=== PATIENT | male | born 1995 | race Caucasian/White ===

== ENCOUNTER 2023-01-26 10:06 | Emergency (ER) | payer SELFPAY ==
[2023-01-26 10:15] VITALS: BP 163/89; PULSE 91; RESP 16; TEMP 36.3; O2SAT 100
--- NOTE | 2023-01-26 11:10 | ED.GENADULT ---
HPI - General Adult General Chief complaint: Recheck/Abnormal Lab/Rx Stated complaint: HTN Time Seen by Provider: 01/26/23 10:51 History of Present Illness HPI narrative: 27-year-old male presents to the emergency room for evaluation of multiple high blood pressure readings. Patient states over the past couple of days he has noticed blood pressure readings over 150/100. Denies headaches, chest pain, vision changes, palpitations frequent urination. States has a strong family history of hypertension. Related Data Allergies Allergy/AdvReac Type Severity Reaction Status Date / Time No Known Allergies Allergy Verified 01/26/23 10:10 Review of Systems Review of Systems: CONSTITUTIONAL: Denies fever, chills, or sweats. EYES: Denies visual changes, redness, or discharge. ENT: Denies rhinorrhea, congestion, sore throat, or otalgia. CARDIOVASCULAR: Denies chest pain, palpitations, or edema. RESPIRATORY: Denies cough or dyspnea. GASTROINTESTINAL: Denies abdominal pain, nausea, vomiting, or diarrhea. GENITOURINARY: Denies dysuria or hematuria. SKIN: Denies rash or itching. MUSCULOSKELETAL: Denies back pain, joint pain, or myalgia. NEUROLOGIC: Denies headache, numbness, dizziness, or weakness. PSYCHIATRIC: Denies anxiety or depression. Exam Narrative: GENERAL: Well-appearing, well-nourished, no physical limitations, and in no acute distress. HEAD: Normocephalic, atraumatic. EYES: Conjunctivae normal, PERRLA and EOMI. NECK: Supple. No carotid bruits or JVD CHEST: Clear to auscultation. No respiratory distress. No wheezes rales or rhonchi. HEART: Regular rate and rhythm. No murmur heard. Normal peripheral pulses. EXTREMITIES: Normal range of motion. No edema. No clubbing or cyanosis SKIN: Warm, dry, no rash. No noted wounds NEURO: No focal deficits. Alert and oriented x3. MAEW. CN's II-XI intact bilaterally, normal gait PSYCH: Cooperative. Normal mood and affect. Course Vital Signs Vital signs: Vital Signs Temperature 36.3 C L 01/26/23 10:15 Pulse Rate 91 01/26/23 10:15 Respiratory Rate 16 01/26/23 10:15 Blood Pressure 163/89 H 01/26/23 10:15 Pulse Oximetry 100 01/26/23 10:15 Temperature 36.3 C L 01/26/23 10:15 Pulse Rate 91 01/26/23 10:15 Respiratory Rate 16 01/26/23 10:15 Blood Pressure 163/89 H 01/26/23 10:15 Pulse Oximetry 100 01/26/23 10:15 Medical Decision Making Vital Signs Vital Signs: Vital Signs Temperature 36.3 C L 01/26/23 10:15 Pulse Rate 91 01/26/23 10:15 Respiratory Rate 16 01/26/23 10:15 Blood Pressure 163/89 H 01/26/23 10:15 Pulse Oximetry 100 01/26/23 10:15 Temperature 36.3 C L 01/26/23 10:15 Pulse Rate 91 01/26/23 10:15 Respiratory Rate 16 01/26/23 10:15 Blood Pressure 163/89 H 01/26/23 10:15 Pulse Oximetry 100 01/26/23 10:15 Lab Data 01/26/23 11:31 Labs: Lab Results 01/26/23 Range/Units 11:31 Sodium 140 (137-145) mmol/L Potassium 3.8 (3.4-5.0) mmol/L Chloride 103 (98-107) mmol/L Carbon Dioxide 31 H (22-30) mmol/L Anion Gap 6 L (8-16) mmol/L BUN 12 (9-20) mg/dL Creatinine 0.70 (0.7-1.3) mg/dL Estim Creat Clear Calc 163 ml/min Estimated GFR > 60 (59 - ) Glucose 106 (65-110) mg/dL Calcium 9.8 (8.4-10.2) mg/dL Total Bilirubin 0.9 (0.2-1.3) mg/dL AST 45 (17-59) U/L ALT 56 H (6-50) U/L Alkaline Phosphatase 76 (38-126) U/L Total Protein 8.0 (6.3-8.2) g/dL Albumin 5.1 (3.5-5.1) g/dL Discharge Plan Discharge Clinical Impression: Hypertension Patient Disposition: Home, Self-Care Condition: Stable Instructions: Antibiotic Form, Hypertension (ED) Prescriptions: New losartan 25 mg tablet 25 mg PO DAILY Qty: 30 0RF Follow-up/Referrals: Sainz,Lawson J., MD [Physician] - PHYSICIAN,[employer] ENGINEER [Primary Care Provider] - Time of Disposition: 11:57
[2023-01-26 11:51] LABS: Alanine Aminotransferase 56 U/L (6-50); Albumin Level 5.1 g/dL (3.5-5.1); Alkaline Phosphatase 76 U/L (38-126); Anion Gap 6 mmol/L (8-16); Aspartate Amino Transferase 45 U/L (17-59); Bilirubin,Total 0.9 mg/dL (0.2-1.3); Blood Urea Nitrogen 12 mg/dL (9-20); Calcium 9.8 mg/dL (8.4-10.2); Carbon Dioxide 31 mmol/L (22-30); Chloride 103 mmol/L (98-107); Estimated CRCL calculation 163 ml/min; Estimated Glomerular Filt Rate > 60; Glucose 106 mg/dL (65-110); Potassium 3.8 mmol/L (3.4-5.0); Sodium 140 mmol/L (137-145)
== END 2023-01-26 12:02 | disposition home or self-care (01) ==
PROVIDERS: Emergency Provider Nurse Practitioner Family
DX: I10 Essential (primary) hypertension (principal)
CPT/HCPCS: 36415; 80053; 99283

== ENCOUNTER 2023-07-19 08:06 | Emergency (ER) | payer SELFPAY ==
--- NOTE | 2023-07-19 08:07 | ED.URI ---
HPI - URI/Sore Throat General Chief Complaint: Upper Respiratory Infection Stated Complaint: Body Aches,Cough Time Seen by Provider: 07/19/23 08:07 Source: patient Mode of arrival: ambulatory Limitations: no limitations History of Present Illness HPI Narrative: Alyson is a 28-year-old male patient presenting to the clinic today with complaints of body aches, sinus congestion, fever, productive cough, and chills. He reports body aches, fever, and chills started last night. Has had a productive cough for approximately 2-3 weeks. Had a sore throat that had improved over the last week. Is bringing up brown/green phlegm. Did not check his temperature last night but felt very hot and his feet were cold. No known exposure to anyone with COVID, flu, or strep. Has been taking OTC cold medicine. MD elicited complaint: fever, cough, nasal congestion, sinus pain and other (Body aches, chills) Related Data Allergies Allergy/AdvReac Type Severity Reaction Status Date / Time No Known Allergies Allergy Verified 01/26/23 10:10 Review of Systems Review of Systems: Pertinent positives per HPI. Patient denies any rash, headache, visual changes, dizziness, shortness of breath, chest pain, palpitations, nausea, vomiting, diarrhea, constipation, abdominal pain, or any urinary issues. PMFSH Comments At the time of my signature, I reviewed and agree with the nursing past medical, surgical, social, and family history. There is no relevant family history pertinent to the patient complaint. Exam Narrative: General: Well-developed, well nourished, in no apparent distress Head: Normocephalic, atraumatic Eyes: Pupils equally round and reactive to light bilaterally, EOM intact, sclera and conjunctive clear, no discharge, lids normal Ears: TMs intact and congested, ear canals clear, no drainage, grossly hearing normal. Nose: Nares patent, clear discharge, moderate inflammation, maxillary sinus tenderness. Mouth: Oral pharynx red with mild tonsillar enlargement without lesions or masses, good dentition, MMM. PND Neck: Supple, trachea midline, no enlargement of anterior or posterior cervical nodes, no thyroid masses or goiter palpable. Cardio: Regular rate and rhythm, s1 and s2 normal, no murmur appreciated. Resp: Clear to auscultation bilaterally, no rhonchi, rales, wheezing or rubs Course Course Emergency Course: Portions of this record may have been created with voice recognition software. Level of Care: Express Care Visit Vital Signs Vital signs: Vital signs reviewed MDM - URI/Sore Throat MDM Narrative Medical decision making narrative: At the time of visit patient is resting comfortably on the exam table. COVID and influenza testing was performed and were negative. I suspect patient has acute bacterial rhinosinusitis. Prescription for Augmentin and prednisone was sent to the pharmacy. Supportive measures were discussed with the patient he voiced understanding discharge instructions agrees to treatment plan. Differential Diagnosis Differential diagnosis: Likely upper respiratory infection, otitis media, sinusitis, viral infection, bronchitis, influenza, pharyngitis and other (COVID, pneumonia) Discharge Plan Discharge Clinical Impression: Acute bacterial rhinosinusitis Patient Disposition: Home, Self-Care Condition: Stable Instructions: Antibiotic Form, Rhinosinusitis (ED) Additional Instructions: Influenza and COVID test were negative in the clinic today. Take prescription medications only as prescribed-Augmentin and prednisone Increase fluids and stay well hydrated Tylenol/motrin for pain/fever Flonase and OTC antihistamines as directed Vicks vapor rub to open sinuses Sinus rinses for congestion Cepacol spray, cough drops, throat lozenges, warm tea with honey/lemon, gargle salt water to soothe throat BRAT diet for diarrhea Clear liquids x 24 hours then advance as tolerated for nausea/vomiting
[2023-07-19 08:21] VITALS: BP 141/88; PULSE 93; RESP 18; TEMP 36.4; O2SAT 100
== END 2023-07-19 08:39 | disposition home or self-care (01) ==
PROVIDERS: Emergency Provider Nurse Practitioner Family
DX: J01.90 Acute sinusitis, unspecified (principal); Z20.822 Contact with and (suspected) exposure to COVID-19; I10 Essential (primary) hypertension
CPT/HCPCS: 87426; 87804; 99213; C9803; G0463

== ENCOUNTER 2024-08-03 09:47 | Emergency (ER) | payer OTHER, SELFPAY ==
--- NOTE | ~2024-08-03 | XR_ITS ---
EXAMINATION: XR hand RT min 3V DATE: 08/03/2024 10:24 INDICATION: Right hand injury with pain at the first metacarpophalangeal joint TECHNIQUE: Posteroanterior, oblique and lateral views of the right hand were obtained. COMPARISON: None. FINDINGS: Alignment is normal. No fracture. Joint spaces are normal. Soft tissues are unremarkable. IMPRESSION: 1. Normal right hand radiographs. Reviewed, dictated and finalized at location B. [facility]
[2024-08-03 10:01] VITALS: BP 138/90; PULSE 65; RESP 16; TEMP 36.4; O2SAT 99
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
== END 2024-08-03 10:33 | disposition home or self-care (01) ==
PROVIDERS: Emergency Provider Nurse Practitioner
DX: S60.221A Contusion of right hand, initial encounter (principal); W22.10XA Striking against or struck by unspecified automobile airbag, initial encounter; I10 Essential (primary) hypertension; K21.9 Gastro-esophageal reflux disease without esophagitis
CPT/HCPCS: 73130; 99213; G0463